=== PATIENT | male | born 2000 | race Caucasian/White ===

== ENCOUNTER 2018-03-01 08:02 | Emergency (ER) | payer OTHER ==
--- NOTE | 2018-03-01 08:32 | ED.PDOC ---
History of Present Illness - General Chief Complaint: Chemical Exposure/Inhalation Stated Complaint: Foot irritation from cement mix/water Time Seen by Provider: 03/01/18 08:21 Additional Information: 17 YEAR OLD WHITE MALE PRESENTS WITH PAINFUL LEFT FOOT HE STATES THAT HE DEVELOPED SORES ON THE FOOT AFTER HIS FEET WAS EXPOSED TO WATER ( THIS SUNDAY 4 DAYS NOW ) CONTAMINATED WITH CEMENT AT THE WORK PLACE HE SPENT SEVERAL HOURS IN THAT WATER AT WORK LATER THAT DAY HE STARTED DEVELOPING PAINFUL ULCERS SCATTERED ON THE LEFT FOOT PATCHY DISTRIBUTION UPTO THE ANKLE THE RIGHT FOOT IS SPARED - History of Present Illness Timing/Duration: other - 4 DAYS Severity: moderate Improving Factors: immobilization Worsening Factors: movement Associated Symptoms: denies symptoms Allergies/Adverse Reactions: Allergies NO KNOWN ALLERGY Allergy (Verified 03/01/18 08:21) Home Medications: Ambulatory Orders NK [NK] 03/01/18 Review of Systems - Review of Systems Constitutional: States: no symptoms reported EENTM: States: no symptoms reported Respiratory: States: no symptoms reported Cardiology: States: no symptoms reported Gastrointestinal/Abdominal: States: no symptoms reported Genitourinary: States: no symptoms reported Musculoskeletal: States: no symptoms reported Skin: States: see HPI Neurological: States: no symptoms reported Endocrine: States: no symptoms reported Hematologic/Lymphatic: States: no symptoms reported Past Medical History (General) - Patient Medical History Hx Stroke: No Hx Congestive Heart Failure: No Hx Diabetes: No Hx MRSA: No - Vaccination History Hx Tetanus, Diphtheria Vaccination: No Hx Influenza Vaccination: No Hx Pneumococcal Vaccination: No - Social History Hx Tobacco Use: Yes Family Medical History - Family History Father Living Status: Still Living Hx Family Hypertension: Yes Physical Exam - Physical Exam General Appearance: Alert Eye Exam: bilateral normal Ears, Nose, Throat: hearing grossly normal, normal ENT inspection, normal pharynx Neck: non-tender, full range of motion, supple Respiratory: chest non-tender, lungs clear, normal breath sounds Cardiovascular/Chest: normal peripheral pulses, regular rate, rhythm, no edema, no gallop Gastrointestinal/Abdominal: normal bowel sounds, non tender, soft, no organomegaly Extremity: non-tender, normal inspection Skin Exam: other - 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 Copy, Patient Portal Self Enrollment Home Medications: Ambulatory Orders NK [NK] 03/01/18 Comments: PATIENT WAS INSTRUCTED ABOUT LOCAL WOUND CARE WILL DRESS THE WOUND
[2018-03-01] MEDS ORDERED: DEXAMETHASONE INJ 10 MG/ML VIAL IM ONE (08:33)
[2018-03-01 08:39] VITALS: BP 130/78; TEMP 98.5; O2SAT 99
== END 2018-03-01 10:04 | disposition home or self-care (01) ==
LOC: EDBD 08:02 → ER 08:02
DX: T65.891A Toxic effect of other specified substances, accidental (unintentional), initial encounter (principal); T25.422A Corrosion of unspecified degree of left foot, initial encounter; Y99.0 Civilian activity done for income or pay; Y92.69 Other specified industrial and construction area as the place of occurrence of the external cause; Z87.891 Personal history of nicotine dependence

== ENCOUNTER 2018-06-14 00:23 | Emergency (ER) | payer SELFPAY | END 2018-06-14 01:15 | disposition home or self-care (01) | LOC: ER 00:23 | DX: M25.511 Pain in right shoulder (principal); Z53.21 Procedure and treatment not carried out due to patient leaving prior to being seen by health care provider ==

== ENCOUNTER 2019-01-19 21:39 | Emergency (ER) | payer SELFPAY ==
[2019-01-19 21:54] VITALS: TEMP 99.6; O2SAT 95
[2019-01-19] MEDS ORDERED: KETOROLAC TROMETHAMINE INJ 30 MG/ML VIAL IM ONE (22:01)
[2019-01-19] MEDS ORDERED: cefTRIAXone SODIUM 1 GM VIAL IM ONE (22:01)
[2019-01-19] MEDS ORDERED: methylPREDNISolone SODIUM SUC 125 MG/2 ML VIAL IM ONE (22:01)
--- NOTE | 2019-01-19 22:03 | ED.PDOC ---
History of Present Illness - General Chief Complaint: ENT Problem Stated Complaint: sore throat, can't swallow Time Seen by Provider: 01/19/19 22:01 - History of Present Illness Initial Comments: c/o sore throat for few days : getting worse Timing/Duration: gradual Severity: severe EENT Location: throat Improving Factors: nothing Worsening Factors: nothing Associated Symptoms: sore throat, voice change Allergies/Adverse Reactions: Allergies NO KNOWN ALLERGY Allergy (Verified 01/19/19 21:52) Home Medications: Ambulatory Orders Amoxicillin & Pot Clavulanate [Augmentin Tab] 875 mg PO BID #20 tab 01/19/19 Naproxen [Naprosyn] 500 mg PO BID #10 tab 01/19/19 Review of Systems - Review of Systems Constitutional: States: no symptoms reported EENTM: States: see HPI Respiratory: States: no symptoms reported Cardiology: States: no symptoms reported Gastrointestinal/Abdominal: States: no symptoms reported Genitourinary: States: no symptoms reported Musculoskeletal: States: no symptoms reported Skin: States: no symptoms reported Neurological: States: no symptoms reported Endocrine: States: no symptoms reported Hematologic/Lymphatic: States: no symptoms reported Past Medical History (General) - Patient Medical History Hx Seizures: No Hx Stroke: No Hx Dementia: No Hx Asthma: No Hx of COPD: No Hx Cardiac Disorders: No Hx Congestive Heart Failure: No Hx Pacemaker: No Hx Hypertension: No Hx Thyroid Disease: No Hx Diabetes: No Hx Gastroesophageal Reflux: No Hx Renal Disease: No Hx Cancer: No Hx of HIV: No Hx Hepatitis C: No Hx MRSA: No Surgical History: no surgical history - Vaccination History Hx Tetanus, Diphtheria Vaccination: No Hx Influenza Vaccination: No Hx Pneumococcal Vaccination: No - Social History Hx Tobacco Use: Yes Hx Alcohol Use: Yes Family Medical History - Family History Father Living Status: Still Living Hx Family Hypertension: Yes Physical Exam - Physical Exam General Appearance: Alert, Comfortable Eye Exam: bilateral normal Ear Exam: bilateral ear: auricle normal Nasal Exam: normal inspection Throat Exam: pharynx tenderness, tonsillar exudate, tonsillar swelling, voice changes - erythematous pharynx and tonsils with enlargement Departure - Departure Clinical Impression: Tonsillitis, Pharyngitis Disposition: Discharge to Home or Self Care Departure Forms: ED Discharge - Pt. Copy, Patient Portal Self Enrollment Activity: increase activity as tolerated, walking as tolerated Prescriptions: Amoxicillin & Pot Clavulanate [Augmentin Tab] 875 mg PO BID #20 tab Naproxen [Naprosyn] 500 mg PO BID #10 tab Home Medications: Ambulatory Orders Amoxicillin & Pot Clavulanate [Augmentin Tab] 875 mg PO BID #20 tab 01/19/19 Naproxen [Naprosyn] 500 mg PO BID #10 tab 01/19/19
[2019-01-19] MEDS ORDERED: LIDOCAINE 1% 2 ML VIAL INJ ONE (22:08)
[2019-01-19 22:24] VITALS: BP 117/73
== END 2019-01-19 22:24 | disposition home or self-care (01) ==
LOC: ER 21:39
DX: J03.90 Acute tonsillitis, unspecified (principal); Z87.891 Personal history of nicotine dependence
CPT/HCPCS: 87070; 87880; J0696; J1885; J2930

== ENCOUNTER 2019-02-11 20:02 | Emergency (ER) | payer SELFPAY ==
--- NOTE | 2019-02-11 20:29 | ED.PDOC ---
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 Denies seizure like activity, bowel or bladder incontinence. Pt is not on anticoagulation. Denies pain or injury elsewhere. Denies weakness, numbness, neck pain, change in vision, CP, SOB, abd pain, n/v. Allergies/Adverse Reactions: Allergies NO KNOWN ALLERGY Allergy (Verified 01/19/19 21:52) Home Medications: Ambulatory Orders Amoxicillin & Pot Clavulanate [Augmentin Tab] 875 mg PO BID #20 tab 01/19/19 Naproxen [Naprosyn] 500 mg PO BID #10 tab 01/19/19 Review of Systems - Review of Systems Constitutional: Denies: diaphoresis, weakness EENTM: Denies: blurred vision, double vision Respiratory: Denies: short of breath Cardiology: Denies: chest pain, palpitations Gastrointestinal/Abdominal: Denies: abdominal pain, nausea, vomiting Genitourinary: Denies: hematuria, pain Musculoskeletal: States: back pain - chronic, no change. Denies: neck pain Skin: States: no symptoms reported Neurological: States: headache. Denies: numbness, weakness Hematologic/Lymphatic: Denies: easy bleeding, easy bruising Past Medical History (General) - Patient Medical History Hx Seizures: No Hx Stroke: No Hx Dementia: No Hx Asthma: No Hx of COPD: No Hx Cardiac Disorders: No Hx Congestive Heart Failure: No Hx Pacemaker: No Hx Hypertension: No Hx Thyroid Disease: No Hx Diabetes: No Hx Gastroesophageal Reflux: Yes Hx Renal Disease: No Hx Cancer: No Hx of HIV: No Hx Hepatitis C: No Hx MRSA: No Surgical History: no surgical history - Vaccination History Hx Tetanus, Diphtheria Vaccination: No Hx Influenza Vaccination: No Hx Pneumococcal Vaccination: No Immunizations Up to Date: Yes - Social History Hx Tobacco Use: Yes Hx Chewing Tobacco Use: No Hx Alcohol Use: Yes Hx Substance Use: No Hx Substance Use Treatment: No Hx Depression: No Feels Threatened In Home Enviroment: No Feels Threatened In a Relationship: No Hx Physical Abuse: No Hx Emotional Abuse: No Hx Suspected Abuse: No - Activities of Daily Living Hospice Agency (if applicable):: None - Female History Patient is a Female of Child Bearing Age (10 -59 yrs old): No Family Medical History - Family History Father Living Status: Still Living Hx Family Hypertension: Yes Physical Exam - Physical Exam General Appearance: Alert, Comfortable, No apparent distress, Well Developed, Well Nourished Head Injury: no evidence of injury, other - no marquez's sign, no raccoon eyes Eye Exam: bilateral normal ENT Exam: no evidence of ENT injury Neck Exam: non-tender, full range of motion, normal alignment, normal inspection Cardiovascular/Respiratory: regular rate, rhythm, no M/R/G, normal peripheral pulses, no JVD, normal breath sounds, no respiratory distress Gastrointestinal/Abdominal: normal bowel sounds, non tender, soft Back Exam: normal inspection, no CVA tenderness, no vertebral tenderness Extremity: normal range of motion, non-tender, normal inspection, no pedal edema, no calf tenderness Mental Status: alert, 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 Pt is well appearing, neuro intact, resting comfortably. I explained that emergent conditions may arise and to return to the ER for new, worsening, or any persistent conditions. I've explained the importance of f/u for recheck. All questions and concerns addressed at this time. Pt understands and agrees with plan. Pt well appearing, NAD, is stable for discharge. Yamilet Crisostomo MD Emergency Medicine Physician Billing Number [id number] - Results/Orders Results/Orders: CT head: EXAM: CT head without contrast CLINICAL INDICATION: Trauma, loss of consciousness COMPARISON: There is no previous study for comparison. TECHNIQUE: The CT scan was done using contiguous axial 2.5 mm sections through the brain. This exam was performed according to our departmental dose- optimization program, which includes automated exposure control, adjustment of the mA and/or kV according to patient size and/or use of iterative reconstruction technique. FINDINGS: There is no midline shift, mass effect, or extraaxial fluid collection. There is no evidence of acute intracranial hemorrhage, mass lesion, or cerebral edema. The ventricles and cortical sulci are normal for the patient's age. Bone window images reveal no evidence of a skull fracture. Incidentally noted is evidence of chronic sinus disease with partial opacification of multiple bilateral ethmoid air cells and mucosal thickening in the bilateral maxillary sinuses. IMPRESSION: No evidence of an acute intracranial process. 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 Copy, Patient Portal Self Enrollment Instructions: DI for Concussion, DI for Closed Head Injury Home Medications: Ambulatory Orders Amoxicillin & Pot Clavulanate [Augmentin Tab] 875 mg PO BID #20 tab 01/19/19 Naproxen [Naprosyn] 500 mg PO BID #10 tab 01/19/19 Additional Instructions: Follow up: [facility] As needed, if symptoms worsen Your Primary Care Physician Make appointment, two days, for follow up
[2019-02-11] MEDS: ACETAMINOPHEN 500 MG TAB PO ONE (20:39)
--- NOTE | 2019-02-11 21:14 | CT ---
EXAM: CT head without contrast CLINICAL INDICATION: Trauma, loss of consciousness COMPARISON: There is no previous study for comparison. TECHNIQUE: The CT scan was done using contiguous axial 2.5 mm sections through the brain. This exam was performed according to our departmental dose-optimization program, which includes automated exposure control, adjustment of the mA and/or kV according to patient size and/or use of iterative reconstruction technique. FINDINGS: There is no midline shift, mass effect, or extraaxial fluid collection. There is no evidence of acute intracranial hemorrhage, mass lesion, or cerebral edema. The ventricles and cortical sulci are normal for the patient's age. Bone window images reveal no evidence of a skull fracture. Incidentally noted is evidence of chronic sinus disease with partial opacification of multiple bilateral ethmoid air cells and mucosal thickening in the bilateral maxillary sinuses. IMPRESSION: No evidence of an acute intracranial process. 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
[2019-02-11 21:40] VITALS: BP 117/69; TEMP 98.2; O2SAT 98
== END 2019-02-11 21:20 | disposition home or self-care (01) ==
LOC: ER 20:02
DX: S09.90XA Unspecified injury of head, initial encounter (principal); K21.9 Gastro-esophageal reflux disease without esophagitis; W50.0XXA Accidental hit or strike by another person, initial encounter; Y93.72 Activity, wrestling; Z87.891 Personal history of nicotine dependence; Y92.9 Unspecified place or not applicable